=== PATIENT | male | born 1990 | race African-American/Black ===

== ENCOUNTER → 2018-07-27 | Outpatient (CLI) | payer SELFPAY ==
--- NOTE | 2018-07-27 16:01 | REP ---
KUB ABDOMEN AND PELVIS: KUB films of the abdomen and pelvis are performed. There is no evidence of bowel obstruction. No dilated small bowel loops are seen. Scattered fecal material is seen in a nondistended colon. I see no abnormal calcifications. Visualized osseous structures are unremarkable. IMPRESSION: No evidence of bowel obstruction. Electronically Signed by Mayank Friedman MD 07/28/2018 04:47 P
== END ==
LOC: M RAD 15:03
PROVIDERS: ATTEND Physician Assistant Medical
DX: R10.9 Unspecified abdominal pain (principal)

== ENCOUNTER 2018-07-28 18:24 | Emergency (ER) | payer SELFPAY ==
[~2018-07-28] VITALS: Ht 185.4 cm; Wt 129.6 kg
[2018-07-28 19:45] LABS: BASO % 0.4 % (0.0-1.0); EOS # 0.1 10^3/uL (0.0-0.50); HEMOGLOBIN 12.5 g/dl (13.5-17.5); LYMPH # 1.3 10^3/uL (1.5-6.5); LYMPH % 17.6 % (24.0-44.0); MEAN CORPUSCULAR HEMOGLOBIN 27.4 pg (27.0-33.0); MEAN CORPUSCULAR HGB CONC 32.1 g/dl (32.0-36.5); MEAN CORPUSCULAR VOLUME 85.5 fl (80.0-96.0); MONO # 0.9 10^3/uL (0.0-0.8); MONO % 11.4 % (0.0-5.0); NEUTROPHILS # 5.3 10^3/uL (1.8-7.7); NEUTROPHILS % 69.3 % (36.0-66.0); PLATELET COUNT, AUTOMATED 252 10^3/uL (150-450); RED BLOOD COUNT 4.56 10^6/uL (4.30-6.10); WHITE BLOOD COUNT 7.6 10^3/uL (4.0-10.0)
[2018-07-28 20:07] LABS: ALBUMIN 3.9 GM/DL (3.2-5.2); BILIRUBIN,DIRECT 0.3 MG/DL (0.0-0.2); BILIRUBIN,TOTAL 0.9 MG/DL (0.2-1.0); CALCIUM LEVEL 8.8 MG/DL (8.5-10.1); CREATININE FOR GFR 1.76 MG/DL (0.70-1.30); GLOMERULAR FILTRATION RATE 59.4 (>60); POTASSIUM SERUM 4.1 MEQ/L (3.5-5.1); TOTAL PROTEIN 7.5 GM/DL (6.4-8.2)
[2018-07-28] MEDS ORDERED: NS 1,000 ML IV ONE (20:15)
[2018-07-28] MEDS ORDERED: KETOROLAC 30 MG/ML VIAL (J1885) IV ONE (20:15)
[2018-07-28] MEDS: GASTROGRAFIN SOLUTION 30ML PO SCH ×2 (21:51→22:18)
[2018-07-28 23:54] LABS: CHLAMYDIA DNA AMPLIFICATION NEGATIVE (NEGATIVE); GC DNA AMPLIFICATION NEGATIVE (NEGATIVE)
--- NOTE | 2018-07-29 00:06 | REPVR ---
EXAM: CT Abdomen and Pelvis Without Contrast EXAM DATE/TIME: 07/28/2018 9:18 PM CLINICAL HISTORY: 27 years old, male; Abdominal pain; Generalized; Patient HX: Elevated labs no i. V. TECHNIQUE: Imaging protocol: Axial computed tomography images of the abdomen and pelvis without contrast. Coronal and sagittal reformatted images were created and reviewed. Radiation optimization: All CT scans at this facility use at least one of these dose optimization techniques: automated exposure control; mA and/or kV adjustment per patient size (includes targeted exams where dose is matched to clinical indication); or iterative reconstruction. COMPARISON: CR Abdomen,Flat Plate KUB 07/27/2018 3:12 PM FINDINGS: Lungs: No suspicious mass or airspace process in the visualized lung bases. Pleural space: Miniscule dependent transudate density bilateral pleural effusions. ABDOMEN: Liver: Liver is decreased in density, consistent with fatty infiltration. Gallbladder and bile ducts: Gallbladder is present and shows no evidence of gallstone. Pancreas: Noncontrast pancreas shows no obvious mass or adjacent fluid. Spleen: Noncontrast spleen shows no obvious focal deformity. Adrenals: Adrenal glands are normal in appearance. Kidneys and ureters: Kidneys demonstrate lobular contours. No stone or obstruction. Stomach and bowel: No evidence of small bowel obstruction. No evidence of acute diverticulitis. Appendix: Normal caliber appendix is identified, with no adjacent inflammation. PELVIS: Bladder: Bladder appears normal. Reproductive: Unremarkable as visualized. ABDOMEN and PELVIS: Intraperitoneal space: No pneumoperitoneum. No abnormal pelvic mass. Bones/joints: Bony structures show no acute fracture or destructive process. Soft tissues: Unremarkable. Vasculature: No aortic aneurysm. Lymph nodes: No enlarged lymph nodes. Other findings: Limited evaluation without enteric or IV contrast. IMPRESSION: 1. No acute surgical abdominal or pelvic process. 2. Diffuse hepatic steatosis. 3. Lobular renal contours which may be developmental or infiltrative. Difficult to assess on noncontrast CT. No obstruction Electronically signed by: Loi Orona On 07/29/2018 00:06:07 AM
[2018-07-29 01:24] VITALS: BP 137/92
== END 2018-07-29 01:30 | disposition home or self-care (01) ==
LOC: M ED 18:24
DX: N05.9 Unspecified nephritic syndrome with unspecified morphologic changes (principal); K76.0 Fatty (change of) liver, not elsewhere classified
CPT/HCPCS: 36415; 74176; 80048; 80076; 81001; 82150; 83605; 83690; 85025; 87086; 87661; 96374; 99284; J1885; Q9963

== ENCOUNTER 2019-05-01 12:34 | Emergency (ER) | payer BC, OTHER, SELFPAY ==
[~2019-05-01] VITALS: Ht 182.9 cm; Wt 143.2 kg
--- NOTE | 2019-05-01 13:42 | REP ---
CT of the thoracic spine: Axial images are acquired helical scanning and a reformatted sagittal coronal projections. Vertebral body heights and alignment are normal. There are no posterior element fractures. The paravertebral soft tissues are unremarkable. Impression: There is no fracture or listhesis. Electronically Signed by Mayank Braga MD 05/01/2019 01:32 P
--- NOTE | 2019-05-01 13:45 | REP ---
CT of the cervical spine without IV contrast: Axial images are acquired helical scanning and a reformatted sagittal coronal reformats. The skull base, C1-C2 are unremarkable. Vertebral body heights, interspacing alignment are normal. The prevertebral soft tissues are unremarkable. The facets are normally aligned. There are no posterior element fractures. Impression: There is no fracture or listhesis. Electronically Signed by Mayank Braga MD 05/01/2019 01:35 P
[2019-05-01] MEDS ORDERED: IBUP80TA PO (14:30)
[2019-05-01] MEDS ORDERED: METH750T2 PO (14:30)
[2019-05-01 14:34] VITALS: BP 144/79
== END 2019-05-01 14:38 | disposition home or self-care (01) ==
LOC: M ED 12:34
DX: S16.1XXA Strain of muscle, fascia and tendon at neck level, initial encounter (principal); V49.49XA Driver injured in collision with other motor vehicles in traffic accident, initial encounter; Y92.410 Unspecified street and highway as the place of occurrence of the external cause; J02.9 Acute pharyngitis, unspecified

== ENCOUNTER → 2019-05-05 | Outpatient (CLI) | payer BC ==
[~2019-05-05] MED LIST: IBUP80TA PO; METH750T2 PO
[2019-05-05 12:34] LABS: APPEARANCE, URINE TURBID (CLEAR); BACTERIA, URINE AUTO NEGATIVE (NEGATIVE); BILIRUBIN, URINE AUTO NEGATIVE (NEGATIVE); BLOOD, URINE BLOOD 1+ (NEGATIVE); COLOR, URINE YELLOW (YELLOW); GLUCOSE, URINE (UA) AUTO NEGATIVE (NEGATIVE); KETONE, URINE AUTO NEGATIVE (NEGATIVE); LEUKOCYTE ESTERASE, URINE AUTO NEGATIVE (NEGATIVE); NITRITE, URINE AUTO NEGATIVE (NEGATIVE); PROTEIN, URINE AUTO NEGATIVE (NEGATIVE); RBC, URINE AUTO 0 /HPF (0-3); SPECIFIC GRAVITY URINE AUTO 1.026 (1.002-1.035); SQUAMOUS EPITHELIAL CELL UR AU 0 /HPF (0-6); WBC, URINE AUTO 0 /HPF (0-3)
[2019-05-05 12:36] LABS: BASO % 0.8 % (0.0-1.0); EOS # 0.2 10^3/uL (0.0-0.5); HEMATOCRIT 44.3 % (42.0-52.0); HEMOGLOBIN 13.9 g/dl (13.5-17.5); LYMPH # 1.8 10^3/uL (1.5-5.0); LYMPH % 44.2 % (24.0-44.0); MEAN CORPUSCULAR HEMOGLOBIN 27.7 pg (27.0-33.0); MEAN CORPUSCULAR HGB CONC 31.4 g/dl (32.0-36.5); MEAN CORPUSCULAR VOLUME 88.2 fl (80.0-96.0); MONO # 0.4 10^3/uL (0.0-0.8); MONO % 9.3 % (0.0-5.0); NEUTROPHILS # 1.7 10^3/uL (1.5-8.5); NEUTROPHILS % 41.7 % (36.0-66.0); PLATELET COUNT, AUTOMATED 264 10^3/uL (150-450); RED BLOOD COUNT 5.02 10^6/uL (4.30-6.10)
[2019-05-05 12:58] LABS: ALBUMIN 4.2 GM/DL (3.2-5.2); ALT/SGPT 74 U/L (12-78); BILIRUBIN,TOTAL 0.4 MG/DL (0.2-1.0); BLOOD UREA NITROGEN 10 MG/DL (7-18); CALCIUM LEVEL 9.4 MG/DL (8.5-10.1); CARBON DIOXIDE LEVEL 24 MEQ/L (21-32); CHLORIDE LEVEL 109 MEQ/L (98-107); CHOLESTEROL LEVEL 165 MG/DL (<200); CHOLESTEROL RISK RATIO 4.583 (<5); CREATININE FOR GFR 1.01 MG/DL (0.70-1.30); FREE T4 1.47 NG/DL (0.76-1.46); GLOMERULAR FILTRATION RATE > 60.0 (>60); GLUCOSE, FASTING 115 MG/DL (70-100); HDL CHOLESTEROL 36 MG/DL (>40); LDL CHOLESTEROL 90 MG/DL (<100); NON-HDL-C 129 MG/DL; POTASSIUM SERUM 4.4 MEQ/L (3.5-5.1); SODIUM LEVEL 140 MEQ/L (136-145); TOTAL PROTEIN 7.7 GM/DL (6.4-8.2); TRIGLYCERIDES LEVEL 193 MG/DL (<150)
[2019-05-05 13:07] LABS: HEMOGLOBIN A1c 6.5 %
[2019-05-05 14:34] LABS: CHLAMYDIA DNA AMPLIFICATION NEGATIVE (NEGATIVE); GC DNA AMPLIFICATION NEGATIVE (NEGATIVE)
[2019-05-06 13:43] LABS: HIV 1&2 SCREEN CENTAUR NEGATIVE (NEGATIVE)
[2019-05-07 14:19] LABS: PSA TOTAL 2.3 ng/mL (0.0-4.0); TESTOSTERONE FREE (DIRECT) 6.6 pg/mL (8.7-25.1)
== END ==
LOC: M PLALAB 08:37
PROVIDERS: ATTEND Nurse Practitioner Family
DX: Z13.228 Encounter for screening for other metabolic disorders (principal); Z13.220 Encounter for screening for lipoid disorders; R35.0 Frequency of micturition; N52.9 Male erectile dysfunction, unspecified; Z11.3 Encounter for screening for infections with a predominantly sexual mode of transmission

== ENCOUNTER → 2021-01-03 | Outpatient (CLI) | payer BC ==
[~2021-01-03] MED LIST changes: +METH-1165 PO; -METH750T2 PO
[2021-01-03 11:48] LABS: BASO # 0.1 10^3/uL (0.0-0.2); BASO % 0.9 % (0.0-1.0); EOS # 0.5 10^3/uL (0.0-0.5); EOS % 9.3 % (0.0-3.0); HEMATOCRIT 46.1 % (42.0-52.0); HEMOGLOBIN 14.7 g/dl (13.5-17.5); LYMPH # 2.5 10^3/uL (1.5-5.0); LYMPH % 44.5 % (24.0-44.0); MEAN CORPUSCULAR HEMOGLOBIN 27.6 pg (27.0-33.0); MEAN CORPUSCULAR HGB CONC 31.9 g/dl (32.0-36.5); MEAN CORPUSCULAR VOLUME 86.5 fl (80.0-96.0); MONO # 0.4 10^3/uL (0.0-0.8); NEUTROPHILS # 2.2 10^3/uL (1.5-8.5); NEUTROPHILS % 38.1 % (36.0-66.0); PLATELET COUNT, AUTOMATED 284 10^3/uL (150-450); RED BLOOD COUNT 5.33 10^6/uL (4.30-6.10); WHITE BLOOD COUNT 5.7 10^3/uL (4.0-10.0)
[2021-01-03 11:57] LABS: HEMOGLOBIN A1c 6.3 %
[2021-01-03 13:07] LABS: ALBUMIN 4.1 GM/DL (3.2-5.2); ALT/SGPT 104 U/L (12-78); BILIRUBIN,TOTAL 0.4 MG/DL (0.2-1.0); BLOOD UREA NITROGEN 12 MG/DL (7-18); CALCIUM LEVEL 9.6 MG/DL (8.5-10.1); CARBON DIOXIDE LEVEL 24 MEQ/L (21-32); CHLORIDE LEVEL 106 MEQ/L (98-107); CHOLESTEROL LEVEL 193 MG/DL (<200); CHOLESTEROL RISK RATIO 3.938 (<5); CREATININE FOR GFR 0.95 MG/DL (0.70-1.30); FREE T4 1.07 NG/DL (0.76-1.46); GLOMERULAR FILTRATION RATE > 60.0 (>60); GLUCOSE, FASTING 112 MG/DL (70-100); HDL CHOLESTEROL 49 MG/DL (>40); LDL CHOLESTEROL 122 MG/DL (<100); NON-HDL-C 144 MG/DL; POTASSIUM SERUM 4.5 MEQ/L (3.5-5.1); SODIUM LEVEL 138 MEQ/L (136-145); TOTAL PROTEIN 7.5 GM/DL (6.4-8.2); TRIGLYCERIDES LEVEL 112 MG/DL (<150)
[2021-01-03 15:37] LABS: MALB URINE SIEMENS 14.2 MG/L
== END ==
LOC: M PLALAB 08:44
PROVIDERS: ATTEND Nurse Practitioner Family
DX: E11.9 Type 2 diabetes mellitus without complications (principal)

== ENCOUNTER → 2021-07-24 | Outpatient (REF) | payer OTHER, BC | LOC: M SMT 13:05 | PROVIDERS: ATTEND Urology | DX: Z30.2 Encounter for sterilization (principal) ==